=== PATIENT | male | born 1945 | race Caucasian/White ===

== ENCOUNTER → 2017-02-14 | Outpatient (CLI) | payer MEDICARE, OTHER | END | disposition home or self-care (01) | LOC: GMAL 10:55 | PROVIDERS: ATTEND Family Medicine | DX: E55.9 Vitamin D deficiency, unspecified (principal); Z12.5 Encounter for screening for malignant neoplasm of prostate; D51.3 Other dietary vitamin B12 deficiency anemia | CPT/HCPCS: 82306; 82607; 83735; G0103 ==

== ENCOUNTER → 2017-04-25 | Outpatient (CLI) | payer MEDICARE, OTHER ==
--- NOTE | 2017-04-25 09:29 | US ---
Study: Bilateral Carotid Artery Doppler Sonogram. Indication: CAROTID BRUIT Technique: Multiplanar grayscale and Doppler sonographic images of the bilateral carotid arteries and vertebral arteries were obtained. Findings: The bilateral carotid arteries demonstrate moderate intimal thickening and calcified plaque. Analysis of duplex waveforms and flow velocities indicate no hemodynamically significant stenosis. The vertebral arteries demonstrate antegrade flow. Impression: Moderate atherosclerosis of the bilateral carotid arteries without hemodynamically significant stenosis. Electronically signed by: Ed Almonte MD 04/25/2017 9:28 AM REMOTE SENSING SCIENTIST
== END | disposition home or self-care (01) ==
LOC: US 08:00
PROVIDERS: ATTEND Family Medicine
DX: R09.89 Other specified symptoms and signs involving the circulatory and respiratory systems (principal)

== ENCOUNTER → 2017-08-15 | Outpatient (CLI) | payer MEDICARE, OTHER | LOC: GMAL 10:45 | PROVIDERS: ATTEND Family Medicine | DX: D51.3 Other dietary vitamin B12 deficiency anemia (principal); E55.9 Vitamin D deficiency, unspecified; M10.9 Gout, unspecified ==

== ENCOUNTER → 2017-09-16 | Outpatient (CLI) | payer MEDICARE, OTHER ==
--- NOTE | 2017-09-16 16:33 | CT ---
EXAM DESCRIPTION: Head CLINICAL HISTORY: SYNCOPE COMPARISON: None available TECHNIQUE: Noncontrast head CT was performed with routine protocol. FINDINGS: Normal orellana-white matter differentiation. Ventricles and sulci are normal for age. No high density hemorrhage, focal edema or shift of the midline. No sulcal effacement. Normal orbital contents. Basilar cisterns appear clear. Intact calvarium with no fracture or lytic lesion. Normal aeration of tympanic cavities and mastoid air cells. No fluid levels in the paranasal sinuses. Skull base appears intact. Symmetrical internal auditory canals. IMPRESSION: No acute intracranial pathologic process. This exam was performed according to our departmental dose-optimization program, which includes automated exposure control, adjustment of the mA and/or kV according to patient size and/or use of iterative reconstruction technique. Total DLP equals Dose mGycm. Electronically signed by: Collin Genao MD 09/16/2017 4:32 PM CDT
--- NOTE | 2017-09-17 13:25 | US ---
EXAM DESCRIPTION: Renal Arteries CLINICAL HISTORY: 71 years Male, UNCONTROLLED HTN COMPARISON: None. TECHNIQUE: Retroperitoneal sonogram was performed to evaluate the kidneys and bladder. Doppler sonography was performed to evaluate renal arteries for possible stenosis in this patient with history of uncontrolled hypertension. FINDINGS: Right kidney Right renal length is 10.6 cm. Renal cortical thickness and echogenicity are overall normal. Mild thinning of the lower half of the right kidney cortex may be focal scarring. No right renal mass, cyst or shadowing stone. No hydronephrosis. Right renal artery Doppler Aortic peak systolic flow velocity of 147.5 cm/s is measured at the level of the renal artery origins. Proximal right renal artery peak systolic flow velocity equals 155 cm/s. Mid right renal artery peak systolic flow velocity equals 63 cm/s. Distal right renal artery peak systolic flow velocity equals 30 cm/s. The right renal artery to aortic peak systolic flow velocity ratio 1.1 is normal. Left kidney Left renal length is 9.4 cm. Renal cortical thickness appears decreased at the upper and lower poles consistent with scarring and renal echogenicity is normal to slightly increased. Cyst in the lower left kidney with thin internal septation measures 2.5 cm in greatest dimension and appears benign. Another cyst in the lower left kidney with multiple internal septations measures 4.4 cm in greatest dimension. This is slightly complex, considered a Bosniak class II cyst which could be followed up in six months. No solid-appearing left renal mass or shadowing stone. No hydronephrosis. Left renal artery Doppler Aortic peak systolic flow velocity is 147.5 cm/s. Proximal left renal artery peak systolic flow velocity is 93 cm/s. Mid left renal artery peak systolic flow velocity is 65 cm/s. Distal left renal artery peak systolic flow velocity is 60 cm/s. The left renal artery to aortic peak systolic flow velocity ratio of 0.6 is normal. Urinary bladder No images of the bladder were included with the exam. IMPRESSION: Mild bilateral renal cortical scarring. Left kidney is slightly small with the right renal size within normal limits. Left renal cysts, one with internal septations as described above. Negative for direct evidence of renal artery stenosis. Electronically signed by: Collin Genao MD 09/17/2017 1:24 PM CDT
== END ==
LOC: US 08:00
PROVIDERS: ATTEND Family Medicine
DX: I10 Essential (primary) hypertension (principal); R55 Syncope and collapse; N28.1 Cyst of kidney, acquired

== ENCOUNTER → 2017-11-15 | Outpatient (CLI) | payer MEDICARE, OTHER | LOC: GMAL 10:21 | PROVIDERS: ATTEND Family Medicine | DX: D51.3 Other dietary vitamin B12 deficiency anemia (principal); E55.9 Vitamin D deficiency, unspecified ==

== ENCOUNTER → 2019-11-19 | Outpatient (CLI) | payer MEDICARE, OTHER | LOC: GMAL 15:40 | PROVIDERS: ATTEND Family Medicine | DX: D51.3 Other dietary vitamin B12 deficiency anemia (principal); R53.82 Chronic fatigue, unspecified; E55.9 Vitamin D deficiency, unspecified; M10.9 Gout, unspecified; E78.49 Other hyperlipidemia; I10 Essential (primary) hypertension ==

== ENCOUNTER → 2019-12-27 | Outpatient (CLI) | payer MEDICARE, OTHER | LOC: GMAL 10:37 | PROVIDERS: ATTEND Family Medicine | DX: M10.9 Gout, unspecified (principal); Z79.899 Other long term (current) drug therapy ==

== ENCOUNTER → 2020-07-01 | Outpatient (CLI) | payer MEDICARE, OTHER | LOC: GMAL 10:44 | PROVIDERS: ATTEND Family Medicine | DX: Z12.5 Encounter for screening for malignant neoplasm of prostate (principal); I10 Essential (primary) hypertension; Z79.899 Other long term (current) drug therapy; E78.49 Other hyperlipidemia; M10.9 Gout, unspecified | CPT/HCPCS: 84550; G0103 ==